=== PATIENT | female | born 1980 | race Two or more races ===

== ENCOUNTER → 2024-10-04 | Outpatient (CLI) | payer MEDICAID, SELFPAY ==
--- NOTE | 2024-10-04 15:30 | XR_ITS ---
Examination: Breast ultrasound, unilateral, left complete Date and time of exam: October 04, 2024 1535 hours INDICATIONS: Left breast sonogram April 08, 2024 13 mm retroareolar nodule Technique: Real-time galvez scale ultrasonographic imaging performed left breast including all 4 quadrants as well as nipple retroareolar and axillary region. Findings: 12:00 cyst 4 x 3 mm 10:00 cyst 4 x 4 millimeter Retroareolar glandular tissue 12 x 4 x 13 mm probably benign IMPRESSION: BI-RADS Category 3: Probably benign findings Recommend 1 additional 6 month left breast sonogram follow-up to document stability of probably benign glandular tissue retroareolar region left breast
== END | disposition home or self-care (01) ==
PROVIDERS: PCP Registered Nurse Community Health; Referring Provider Registered Nurse Community Health; Visit Provider Registered Nurse Community Health
DX: R92.8 Other abnormal and inconclusive findings on diagnostic imaging of breast (principal); N60.02 Solitary cyst of left breast
CPT/HCPCS: 76641

== ENCOUNTER 2024-12-07 15:25 | Emergency (ER) | payer MEDICAID, SELFPAY ==
[2024-12-07 15:26] VITALS: BMI 30.2
[2024-12-07 15:43] VITALS: BP 104/67; PULSE 81; RESP 18; TEMP 36.9; O2SAT 97
--- NOTE | 2024-12-07 15:49 | XR_ITS ---
Examination: Hand, left 3 views Technique: Hand AP, oblique, lateral 3 views Date and time of exam: December 07, 2024 1554 hours INDICATIONS: Injured the hand today, hand pain FINDINGS: No acute fracture No dislocation No foreign body IMPRESSION: No acute fracture
--- NOTE | 2024-12-07 17:01 | PD.EDUPEX ---
Upper Extremity Injury RME/HPI General Chief Complaint: Extremity Injury, Upper Stated Complaint: L HAND PAIN/CONTUSION Time Seen by Provider: 12/07/24 15:29 Arrival date/time: 12/07/24 15:25 44-year-old female presents emergency department today stating that she was working outside and a branch hit her left hand patient reports pain and swelling to the dorsal aspect of the left hand Limitations: no limitations Related Data Home Medications ?Medication ?Instructions ?Recorded ?Confirmed fluoxetine 10 mg capsule 10 mg PO QDAY 01/28/18 01/29/18 Previous Rx's ?Medication ?Instructions ?Recorded diphenhydramine HCl 25 mg tablet 25 mg PO TID PRN allergic reaction 01/09/22 (Benadryl Allergy) #30 tabs ibuprofen 800 mg tablet 800 mg PO TID PRN pain #30 tabs 12/07/24 Allergies Allergy/AdvReac Type Severity Reaction Status Date / Time sulfamethoxazole Allergy Intermediate Hives Verified 01/08/22 22:59 trimethoprim Allergy Intermediate Hives Verified 01/08/22 22:59 Review of Systems Review of Systems Systems Reviewed: All systems reviewed, normal except as documented Constitutional Constitutional: Reports system reviewed and no additional complaints, except as documented, Denies fever(s) and Denies headache(s) Eyes Eyes: Reports system reviewed and no additional complaints, except as documented and Denies blurry vision ENT Ears, Nose, Mouth, and Throat: Reports system reviewed and no additional complaints, except as documented, Denies headache(s), Denies nasal congestion and Denies nasal discharge Cardiovascular Cardiovascular: Reports system reviewed and no additional complaints, except as documented, Denies chest pain and Denies dyspnea Respiratory Respiratory: Reports system reviewed and no additional complaints, except as documented, Denies chest congestion, Denies cough and Denies dyspnea Gastrointestinal Gastrointestinal: Reports system reviewed and no additional complaints, except as documented and Denies abdominal pain Musculoskeletal Musculoskeletal: Reports system reviewed and no additional complaints, except as documented, Reports arthralgias, Denies deformity, Reports joint swelling, Denies numbness, Reports stiffness and Denies tingling Integumentary/Breasts Skin/Breast: Reports system reviewed and no additional complaints, except as documented and Denies rash Neurologic Neurologic: Reports system reviewed and no additional complaints, except as documented, Reports as per HPI, Denies headache(s), Denies numbness and Denies tingling Past Medical History Past Medical History NEUROLOGIC: Negative Neurological Disorders or Seizures CARDIAC: Negative Cardiac Disorders or Congestive Heart Failure RESPIRATORY: Negative Chronic Obstructive Pulmonary Disease (COPD) GASTROINTESTINAL: Negative Gastrointestinal Disorders GENITOURINARY: Negative Genitourinary Disorders or Renal Disease REPRODUCTIVE: Positive Previous Pregnancies (X4) ENDOCRINE: Negative Endocrine Disorders, Diabetes Mellitus Type 1 or Diabetes Mellitus Type 2 HEMATOLOGIC: Negative Blood Disorders PSYCHO/SOCIAL: Positive Depression (TAKES PO MED) and Anxiety (TAKES PO MED) OTHER HISTORY: Positive Chicken Pox; Negative Autoimmune Disease or Anesthesia Reactions Surgical History SURGICAL: Positive Section (X2) Social History SMOKING STATUS: Never smoker ED Exam General Limitations: Present no limitations General appearance: Present alert and in no apparent distress Head Head exam: Present atraumatic Eye Eye exam: Present normal appearance, PERRL and EOMI ENT ENT exam: Present normal exam, normal oropharynx and mucous membranes moist Neck Neck exam: Present normal inspection, full ROM and trachea midline Chest Chest inspection: Present normal inspection and symmetric chest wall rise Respiratory Respiratory exam: Present normal lung sounds bilaterally Cardiovascular Cardiovascular exam: Present regular rate, normal rhythm and normal heart sounds Abdominal Exam Abdominal exam: Present soft and normal bowel sounds Extremities Exam Extremities exam: Present full ROM, tenderness, normal capillary refill and joint swelling (Left hand pain) Back Exam Back exam: Present normal inspection and full ROM Neurological Exam Neurological exam: Present alert, oriented X3 and CN II-XII intact Psychiatric Psychiatric exam: Present normal affect and normal mood Skin Skin exam: Present warm, dry, intact and normal color Course Quality Measures none Orders Category Date Time Status jean-pierre wrap [Splint / Immobilizer] STAT Care 12/07/24 17:01 Completed XR hand comp LT min 3V Stat Exams 12/07/24 15:49 Completed Ibuprofen Tab [Motrin Tab] Med 12/07/24 17:01 Discontinued 600 mg PO X1 ONE Vital Signs Vital signs: Vital Signs Temperature 98.4 F 12/07/24 15:43 Pulse Rate 81 12/07/24 15:43 Respiratory Rate 18 12/07/24 15:43 Blood Pressure 104/67 12/07/24 15:43 Pulse Oximetry (%) 97 12/07/24 15:43 Oxygen Delivery Method Room Air 12/07/24 15:43 O2 saturation 97% room air with normal Extremity Injury MDM Narrative MDM Narrative:: 44-year-old female presents emergency department today stating that she was working outside and a branch hit her left hand patient reports pain and swelling to the dorsal aspect of the left hand On exam patient has mild swelling and bruising to the dorsal aspect of the left hand no deformity patient can move all fingers without difficulty X-ray obtained no acute fracture dislocation noted Patient placed in Jean-Pierre wrap Explained to the patient that if symptoms persist or worsen she may need advanced imaging for further evaluation Patient data External records reviewed:: [facility] previous records Clinical information provided by:: patient Social determinants that could affect healthcare access:: none Patient has the following chronic illnesses:: None How is presenting disease/condition affected by chronic disease/condition?: no chronic disease Evaluation data The following diagnostics were reviewed and interpreted by me:: radiology exam(s) Lab and/or radiology exams considered but not ordered:: Radiology obtain Interpretation Summary: Reviewed by me Medications / Prescriptions Medications or Prescriptions considered but not ordered:: Given Medication administrations:: Medication Administration History Discontinued Medications Ibuprofen (Ibuprofen Tab 600 Mg Tablet) 600 mg PO X1 ONE Stop: 12/07/24 17:02 Last Admin: 12/07/24 17:07 Dose: 600 mg Documented By: OA Given Consultations Consultation(s) initiated? (list below): No Diagnosis Upper Extremity Injury Differential Diagnosis: sprain and strain of wrist and fracture of hand Most likely diagnosis given after review of the tests above:: Contusion of hand Admission Indicated Admission indicated?: not indicated Admission Request Was there a request for admission?: No Disposition Plan Disposition Plan: Discharge Discharge Attestation Discharge Attestation: The patient and all family members were given an opportunity to ask questions and understood the discharge instructions. Discharge instructions specifically effects, indications for sooner follow up or return to the emergency department, and the expected course of current diagnosis. Patient condition: Stable Discharge Plan Plan Patient Disposition: HOME (Self Care) Disposition Comment: Stable Prescriptions/Referrals Prescriptions/Med Rec: New ibuprofen 800 mg tablet 800 mg PO TID PRN (Reason: pain) Qty: 30 0RF No Action fluoxetine 10 mg Capsule 10 mg PO QDAY diphenhydramine HCl [Benadryl Allergy] 25 mg tablet 25 mg PO TID PRN (Reason: allergic reaction) Qty: 30 0RF Referrals: Mayra Estrada FNP [Primary Care Provider] - In 1 week Problem List Clinical Impression: Contusion of left hand Patient/Caregiver Discharge Instructions Education Materials: Bruises (Contusions) Additional Instructions: Please follow up with your primary care doctor in the next 24-48hrs for any worsening symptoms return here immediately Print Language: Romanian Stand Alone Forms: Caroline Award Info., Patient Portal Info Letter PA/STATISTICS TUTOR Supervising Physician PA/STATISTICS TUTOR Supervising Physician: Dr Driver
[2024-12-07] MEDS: IBUPROFEN TAB 600 MG TABLET PO (17:07)
== END 2024-12-07 17:15 | disposition home or self-care (01) ==
PROVIDERS: Emergency Provider Emergency Medicine; PCP Registered Nurse Community Health
DX: S60.222A Contusion of left hand, initial encounter (principal); W22.8XXA Striking against or struck by other objects, initial encounter; Y93.89 Activity, other specified
CPT/HCPCS: 73130; 99283; A9270

== ENCOUNTER 2024-12-23 18:35 | Emergency (ER) | payer MEDICAID, SELFPAY ==
[2024-12-23 18:37] VITALS: BMI 26.2
[2024-12-23 19:49] VITALS: BP 113/77; PULSE 79; RESP 18; TEMP 36.9; O2SAT 95
--- NOTE | 2024-12-23 20:04 | XR_ITS ---
Examination: Duplex scan of the lower extremity, unilateral right Date and time of exam: January 03, 2020 5:10 PM Indications: Right leg pain beginning 3 weeks ago Technique: Duplex scan of the extremity veins using B-mode/grayscale imaging and Doppler spectral analysis and color flow Attention is directed to internal echogenicity, compression and augmentation involving these veins, color flow assessment, spectral analysis Findings: Major deep venous structures in the extremity demonstrate normal course and caliber. There is no evidence of deep vein thrombosis. Normal color flow and spectral analysis Impression: Negative for DVT..
[2024-12-23] MEDS: GABAPENTIN 300 MG CAPSULE PO (20:13)
[2024-12-23] MEDS: KETOROLAC INJ 60 MG/2 ML VIAL IM (20:14)
--- NOTE | 2024-12-23 21:36 | EDNOTE_ITS ---
ED Back Injury Pain RME/HPI General Chief Complaint: Back Pain/Injury Stated Complaint: LOWER BACK PAIN RADIATING DOWN RIGHT LEG Time Seen by Provider: 12/23/24 20:03 Arrival date/time: 12/23/24 18:35 44F with no significant PMH presents to ED with R lower back pain that radiates down RLE for 3 weeks. Patient denies fall/trauma, dysuria/hematuria, vaginal bleeding, SOB and CP. Limitations: no limitations Related Data Home Medications ?Medication ?Instructions ?Recorded ?Confirmed fluoxetine 10 mg capsule 10 mg PO QDAY 01/28/1801/29 Previous Rx's ?Medication ?Instructions ?Recorded diphenhydramine HCl 25 mg tablet 25 mg PO TID PRN [place] rgic reaction 01/09/22 (Benadryl Allergy) #30 tabs ibuprofen 800 mg tablet 800 mg PO TID PRN pain #30 t abs 12/07/24 Allergies Allergy/AdvReac Type Severity Reaction Status Date / Time sulfamethoxazole Allergy Intermediate Hives Verified 12/23/24 18:36 trimethoprim Allergy Intermediate Hives Verified 12/23/24 18:36 Review of Systems Review of Systems Systems Reviewed: All systems reviewed, normal except as documented Constitutional Constitutional: Reports system reviewed and no additional complaints, except as documented, Denies fever(s) and Denies headache(s) ENT Ears, Nose, Mouth, and Throat: Denies disequilibrium and Denies headache(s) Cardiovascular Cardiovascular: Reports system reviewed and no additional complaints, except as documented, Denies chest pain and Denies dyspnea Respiratory Respiratory: Reports system reviewed and no additional complaints, except as documented, Denies cough and Denies dyspnea Gastrointestinal Gastrointestinal: Reports system reviewed and no additional complaints, except as documented, Denies abdominal pain, Denies nausea and Denies vomiting Musculoskeletal Musculoskeletal: Reports as per HPI, Reports back pain and Reports radiating pain into limb Neurologic Neurologic: Reports system reviewed and no additional complaints, except as documented, Denies confusion, Denies disequilibrium and Denies headache(s) Psychiatric Psychiatric: Denies confusion Past Medical History Past Medical History NEUROLOGIC: Negative Neurological Disorders or Seizures CARDIAC: Negative Cardiac Disorders or Congestive Heart Failure RESPIRATORY: Negative Chronic Obstructive Pulmonary Disease (COPD) GASTROINTESTINAL: Negative Gastrointestinal Disorders GENITOURINARY: Negative Genitourinary Disorders or Renal Disease REPRODUCTIVE: Positive Previous Pregnancies (X4) ENDOCRINE: Negative Endocrine Disorders, Diabetes Mellitus Type 1 or Diabetes Mellitus Type 2 HEMATOLOGIC: Negative Blood Disorders PSYCHO/SOCIAL: Positive Depression (TAKES PO MED) and Anxiety (TAKES PO MED) OTHER HISTORY: Positive Chicken Pox; Negative Autoimmune Disease or Anesthesia Reactions Surgical History SURGICAL: Positive Section (X2) Social History SMOKING STATUS: Never smoker ED Exam General Limitations: Present no limitations General appearance: Present alert and in no apparent distress Head Head exam: Present atraumatic Eye Eye exam: Present normal appearance, PERRL and EOMI ENT ENT exam: Present normal exam, normal oropharynx and mucous membranes moist Neck Neck exam: Present normal inspection, full ROM and trachea midline Chest Chest inspection: Present normal inspection and symmetric chest wall rise Respiratory Respiratory exam: Present normal lung sounds bilaterally Cardiovascular Cardiovascular exam: Present regular rate, normal rhythm and normal heart sounds Abdominal Exam Abdominal exam: Present soft and normal bowel sounds Extremities Exam Extremities exam: Present normal inspection and full ROM Back Exam Back exam: Present normal inspection and full ROM Neurological Exam Neurological exam: Present alert, oriented X3 and CN II-XII intact Psychiatric Psychiatric exam: Present normal affect and normal mood Skin Skin exam: Present warm, dry, intact and normal color Course Quality Measures none Orders Category Date Time Status US venous doppler LE RT Stat Exams 12/23/24 20:04 Completed Gabapentin [Neurontin] Med 12/23/24 20:04 Discontinued 300 mg PO X1 ONE Ketorolac Inj [Toradol Inj] Med 12/23/24 20:04 Discontinued 60 mg IM X1 ONE Vital Signs Vital signs: Vital Signs Temperature 98.5 F 12/23/24 19:49 Pulse Rate 79 12/23/24 19:49 Respiratory Rate 18 12/23/24 19:49 Blood Pressure 113/77 12/23/24 19:49 Pulse Oximetry (%) 95 12/23/24 19:49 Oxygen Delivery Method Room Air 12/23/24 19:49 O2 at 95% on RA and WNLs Back Pain / Injury MDM Narrative MDM Narrative:: 44F with no significant PMH presents to ED with R lower back pain that radiates down RLE for 3 weeks. Patient denies fall/trauma, dysuria/hematuria, vaginal bleeding, SOB and CP. Physical exam reveals no gross RLE swelling. No midline back tenderness. ROM intact. Patient is afebrile, calm, and alert. Gait normal. US no DVT. Likely sciatica. Patient data External records reviewed:: [facility] previous records Clinical information provided by:: patient Social determinants that could affect healthcare access:: none Patient has the following chronic illnesses:: none How is presenting disease/condition affected by chronic disease/condition?: no chronic disease Evaluation data The following diagnostics were reviewed and interpreted by me:: radiology exam(s) Lab and/or radiology exams considered but not ordered:: ordered Interpretation Summary: above Medications / Prescriptions Medications or Prescriptions considered but not ordered:: ordered Medication administrations:: Medication Administration History Discontinued Medications Gabapentin (Gabapentin 300 Mg Capsule) 300 mg PO X1 ONE Stop: 12/23/24 20:05 Last Admin: 12/23/24 20:13 Dose: 300 mg Documented By: YESENIA Ketorolac Tromethamine (Ketorolac Inj 60 Mg/2 Ml Vial) 60 mg IM X1 ONE Stop: 12/23/24 20:05 Last Admin: 12/23/24 20:14 Dose: 60 mg Documented By: YESENIA above Consultations Consultation(s) initiated? (list below): No Diagnosis Differential diagnosis back pain/injury: lumbar radiculopathy, sciatica, strain of lumbar region, renal colic, pyelonephritis, thoracic back pain, AAA, discitis and other (DVT) Most likely diagnosis given after review of the tests above:: sciatica Admission Indicated Admission indicated?: not indicated Admission Request Was there a request for admission?: No Disposition Plan Disposition Plan: Discharge Discharge Attestation Discharge Attestation: The patient and all family members were given an opportunity to ask questions and understood the discharge instructions. Discharge instructions specifically effects, indications for sooner follow up or return to the emergency department, and the expected course of current diagnosis. Patient condition: Stable Discharge Plan Plan Patient Disposition: HOME (Self Care) Disposition Comment: Stable Prescriptions/Referrals Prescriptions/Med Rec: No Action fluoxetine 10 mg Capsule 10 mg PO QDAY diphenhydramine HCl [Benadryl Allergy] 25 mg tablet 25 mg PO TID PRN (Reason: allergic reaction) Qty: 30 0RF ibuprofen 800 mg tablet 800 mg PO TID PRN (Reason: pain) Qty: 30 0RF Referrals: Mayra Estrada FNP [Primary Care Provider] - In 1 week Problem List Clinical Impression: Sciatica Patient/Caregiver Discharge Instructions Education Materials: ED Sciatica Additional Instructions: Please follow-up with PCP within 24-48 hours and return immediately if symptoms worsen. If problem persists, recommend outpatient PT and/or MRI follow-up. In the meantime, rest, use ice/heat, and/or compression. Print Language: Norwegian Stand Alone Forms: Patient Portal Info Letter PA/COUNTER DISH CARRIER Supervising Physician PA/COUNTER DISH CARRIER Supervising Physician: Dr. Welch
[2024-12-23 23:16] VITALS: BP 112/74; PULSE 71; RESP 17; TEMP 36.6; O2SAT 97
== END 2024-12-23 23:26 | disposition home or self-care (01) ==
PROVIDERS: Emergency Provider Emergency Medicine; PCP Registered Nurse Community Health
DX: M54.41 Lumbago with sciatica, right side (principal)
CPT/HCPCS: 93971; 96372; 99284; J1885; A9270

== ENCOUNTER → 2025-03-31 | Outpatient (CLI) | payer MEDICAID, SELFPAY ==
--- NOTE | 2025-03-31 09:00 | XR_ITS ---
Examination: Screening digital mammography, bilateral Computer aided detection 3-D breast Tomosynthesis, bilateral Date and time of exam: March 31, 2025 0847 hours Compared to mammograms dating to August 08, 2022 Indication: Screening Technique: Nonmagnified MLO, CC views of the breasts to been obtained, reconstructed from 3-D Tomosynthesis images. R2 computer aided detection program utilized for evaluation of suspicious masses and/or abnormal calcifications. 3-D Tomosynthesis images obtained. Findings: The breasts are heterogeneously dense, which may obscure small masses Probably benign stable bilateral breast calcifications No suspicious masses Impression: BI-RADS Category 3: Probably benign findings Recommend 6 month bilateral mammography follow-up.
== END | disposition home or self-care (01) ==
LOC: CDIM 08:39
PROVIDERS: Referring Provider Nurse Practitioner Family; Visit Provider Nurse Practitioner Family
DX: Z12.31 Encounter for screening mammogram for malignant neoplasm of breast (principal); R92.333 Mammographic heterogeneous density, bilateral breasts
CPT/HCPCS: 77063; 77067

== ENCOUNTER → 2025-05-05 | Outpatient (CLI) | payer MEDICAID, SELFPAY ==
--- NOTE | 2025-05-05 14:30 | XR_ITS ---
Examination: Breast ultrasound, unilateral, left complete Date and time of exam: May 05, 2025 1443 hours INDICATIONS: Palpable lumps in the outer left breast several years Technique: Real-time galvez scale ultrasonographic imaging performed left breast including all 4 quadrants as well as nipple retroareolar and axillary region. Findings: 2:00 cyst 5 x 7 mm 9:00 cyst 4 x 4 millimeter Retroareolar oval mass circumscribed 5 x 6 mm IMPRESSION: BI-RADS Category 3: Probably benign findings One additional 6 month left breast sonogram follow-up needed to document stability of retroareolar nodule described above
== END | disposition home or self-care (01) ==
LOC: CDIM 14:21
PROVIDERS: PCP Registered Nurse Community Health; Referring Provider Registered Nurse Community Health; Visit Provider Registered Nurse Community Health
DX: N63.42 Unspecified lump in left breast, subareolar (principal)
CPT/HCPCS: 76641

== ENCOUNTER 2025-09-27 02:11 | Emergency (ER) | payer MEDICAID, SELFPAY ==
[2025-09-27] VITALS (7 sets, daily range): BP systolic 98–135; BP diastolic 53–98; PULSE 75–93; RESP 16–40; TEMP 36.6–36.9; O2SAT 96–100; BMI 27.7
--- NOTE | 2025-09-27 02:13 | EDNOTE_ITS ---
ED Anxiety RME/HPI General Chief Complaint: Anxiety Stated Complaint: ANXIETY Time Seen by Provider: 09/27/25 02:26 Arrival date/time: 09/27/25 02:11 RME / HPI RME / HPI narrative: See [facility] for Dr. Welch's HPI documentation. Related Data Home Medications ?Medication ?Instructions ?Recorded ?Confirmed fluoxetine 10 mg capsule 10 mg PO QDAY 01/28/1801/29 Previous Rx's ?Medication ?Instructions ?Recorded diphenhydramine HCl 25 mg tablet 25 mg PO TID PRN [place] rgic reaction 01/09/22 (Benadryl Allergy) #30 tabs ibuprofen 800 mg tablet 800 mg PO TID PRN pain #30 t abs 12/07/24 Allergies Allergy/AdvReac Type Severity Reaction Status Date / Time sulfamethoxazole Allergy Intermediate Hives Verified 12/23/24 18:36 trimethoprim Allergy Intermediate Hives Verified 12/23/24 18:36 Review of Systems Review of Systems Systems Reviewed: All systems reviewed, normal except as documented Past Medical History Past Medical History NEUROLOGIC: Negative Neurological Disorders or Seizures CARDIAC: Negative Cardiac Disorders or Congestive Heart Failure RESPIRATORY: Negative Chronic Obstructive Pulmonary Disease (COPD) GASTROINTESTINAL: Negative Gastrointestinal Disorders GENITOURINARY: Negative Genitourinary Disorders or Renal Disease REPRODUCTIVE: Positive Previous Pregnancies (X4) ENDOCRINE: Negative Endocrine Disorders, Diabetes Mellitus Type 1 or Diabetes Mellitus Type 2 HEMATOLOGIC: Negative Blood Disorders PSYCHO/SOCIAL: Positive Depression (TAKES PO MED) and Anxiety (TAKES PO MED) OTHER HISTORY: Positive Chicken Pox; Negative Autoimmune Disease or Anesthesia Reactions Surgical History SURGICAL: Positive Section (X2) Social History SMOKING STATUS: Never smoker ED Exam Narrative Physical exam: See [facility] for Dr. Welch's physical exam documentation. Course Quality Measures none Anxiety [facility] Narrative [facility] Narrative: This section includes all my notes and documentations, including HPI, PE, and ED course. Tavares Welch MD HPI: 45-year-old female BIBA from home with possible panic attack. Unable to obtain history from the patient. She seems to be hyperventilating and not answering questions. According to EMS, she caught her 19-year-old son smoking marijuana. Then she laid herself on the floor with rapid breathing and uncontrollable mov ements and not answering questions. ROS: Unable to obtain from the patient due to current clinical condition. Physical Exam: General: Alert. Appears to be hyperventilating. Hypoxia noted. Eyes: Conjunctivae and lids clear. PERRL. EOMI. ENT: No nasal congestion. Neck: Supple. Heart: RRR. Lungs: No respiratory distress. Good air movement. No severe rhonchi, wheezing, rales. Abdomen: Soft and nontender. Normal bowel sounds. No distension. No rebound or guarding. Skin: Warm and dry. Neuro: Alert. Cranial nerves II to XII grossly normal. No obvious peripheral motor deficits. I reviewed EMS notes. I reviewed all diagnostic test results. My interpretation of the EKG is sinus rhythm with nonspecific ST-T changes. My interpretation of the chest x-ray is NAD, official radiology report is pending. Blood tests remarkable for WBC 11.7, CO2 14.8. ABG showed pH 7.72, pCO2 14, pO2 59, pHCO3 18. UA unremarkable. UDS negative. Head CT and chest CTA pending. At this point, diagnoses include: Hypoxia Treatment prior to diagnostic tests included: Zofran ODT 4 mg and Xanax 0.75 mg before diagnostic tests (no improvement noted) Treatment after diagnostic tests and with persistent hypoxia: Ativan 2 mg IV Solumedrol 125 mg IV DuoNeb At 6 AM on 09/27/2025, the care of the patient was transferred to Dr. Eldridge. Tavares Welch MD Patient data External records reviewed:: [facility] previous records (Per chart review, patient was seen here on 12/23/24 for sciatica.) and EMS form Clinical information provided by:: EMS Social determinants that could affect healthcare access:: none Patient has the following chronic illnesses:: none How is presenting disease/condition affected by chronic disease/condition?: no chronic disease Evaluation data The following diagnostics were reviewed and interpreted by me:: lab results, radiology exam(s) and EKG tracing(s) (My interpretation of the EKG is: Sinus rhythm (79 bpm) with nonspecific ST-T changes. Tavares Welch MD) Lab and/or radiology exams considered but not ordered:: none Interpretation Summary: I reviewed all diagnostic test results. My interpretation of the EKG is sinus rhythm with nonspecific ST-T changes. My interpretation of the chest x-ray is NAD, official radiology report is pending. Blood tests remarkable for WBC 11.7, CO2 14.8. ABG showed pH 7.72, pCO2 14, pO2 59, pHCO3 18. UA unremarkable. UDS negative. Head CT and chest CTA pending. Medications / Prescriptions Medications or Prescriptions considered but not ordered:: none Medication administrations:: Treatment prior to diagnostic tests included: Zofran ODT 4 mg and Xanax 0.75 mg before diagnostic tests (no improvement noted) Treatment after diagnostic tests and with persistent hypoxia: Ativan 2 mg IV Solumedrol 125 mg IV DuoNeb Consultations Consultation(s) initiated? (list below): No Diagnosis Differential diagnosis anxiety: hyperventilation, panic disorder and acute anxiety Most likely diagnosis given after review of the tests above:: Persistent hypoxia Admission Indicated Admission indicated?: not indicated Explain why admission is indicated or not indicated:: Complete diagnostic tests are pending. Admission Request Was there a request for admission?: No Disposition Plan Disposition Plan: other (specify) (At 6 AM on 09/27/2025, the care of the patient was transferred to Dr. Eldridge.) Discharge Plan Prescriptions/Referrals Prescriptions/Med Rec: No Action fluoxetine 10 mg Capsule 10 mg PO QDAY diphenhydramine HCl [Benadryl Allergy] 25 mg tablet 25 mg PO TID PRN (Reason: allergic reaction) Qty: 30 0RF ibuprofen 800 mg tablet 800 mg PO TID PRN (Reason: pain) Qty: 30 0RF Referrals: Mayra Estrada FNP [Primary Care Provider] - In 1 week Problem List Clinical Impression: Hypoxia Patient/Caregiver Discharge Instructions Print Language: Indonesian
[2025-09-27] MEDS: ONDANSETRON ODT 4 MG TABRAP PO (02:19)
[2025-09-27 02:40] LABS: Basophils # (Auto) 0.1 Thou/mm3 (0.0-0.2); Basophils % (Auto) 1 % (0-2.5); Eosinophils # (Auto) 0.1 Thou/mm3 (0.0-0.5); Eosinophils % (Auto) 1 % (0-10); Hematocrit 42.7 % (36.0-46.0); Hemoglobin 15.3 g/dL (12.0-16.0); Immature Granulocytes Auto 0.08 Thou/mm3 (0.00-0.00); Lymphocytes # (Auto) 2.9 Thou/mm3 (1.0-4.8); Lymphocytes % (Auto) 24 % (10-50); Mean Corpuscular HGB Conc 35.8 g/dl (31.0-37.0); Mean Corpuscular Hemoglobin 31.3 pg (25.0-35.0); Mean Corpuscular Volume 87 fL (80-100); Monocytes # (Auto) 0.5 Thou/mm3 (0.0-0.8); Monocytes % (Auto) 5 % (0-12); Neutrophils # (Auto) 8.1 Thou/mm3 (1.8-7.7); Neutrophils % (Auto) 69 % (37-80); Nucleated Red Blood Cell # 0.00 Thou/mm3 (0.00-0.00); Nucleated Red Blood Cell % 0 /100 WBC (0); Platelet Count 221 Thou/mm3 (140-440); RDW Standard Deviation 39.9 fL (36.4-46.3); Red Blood Count 4.89 Miln/mm3 (4.00-5.20); White Blood Count 11.7 Thou/mm3 (3.6-11.0)
--- NOTE | 2025-09-27 02:55 | XR_ITS ---
AP portable upright chest film on 09/27/2025 at 3:53 a.m. Comparison study 11/26/2013 CLINICAL HISTORY: Shortness of breath today FINDINGS: The heart mediastinum and hilar regions appear radiographically normal. Both lungs are clear there is no pleural fluid. Surgical clips are seen in the gallbladder fossa. In the upper third of the thoracic spine there is exceedingly minimal scoliosis, unchanged from the prior film. In all other respects the bony thorax appears normal. IMPRESSION: 1. Normal AP upright chest film 2. Please see above regarding some additional finding
[2025-09-27 03:04] LABS: HCG,Qualitative Serum Negative
[2025-09-27 03:20] LABS: Alcohol, Blood Medical < 3.0 mg/dL (0-10.0); Anion Gap 19 (7-16); BUN/Creatinine Ratio 9 Ratio (12-20); Blood Urea Nitrogen 6 mg/dL (9-23); Calcium 10.0 mg/dL (8.3-10.6); Chloride 106 mMol/L (98-107); Creatine Kinase 100 U/L (34-171); Creatinine (Component) 0.7 mg/dL (0.6-1.3); Estimated Creatinine Clearance 105.9 mL/min (>60); Glucose 110 mg/dL (74-106); Magnesium 1.7 mg/dL (1.6-2.6); Osmolality,Calculated 278 (275-295); Potassium 3.4 mMol/L (3.4-5.1); Sodium 140 mMol/L (136-145); Thyroid Stimulating Hormone 2.69 uIU/mL (0.55-4.78); Troponin I < 0.020 ng/mL (0.0-0.045); eGFR > 60 See Note
[2025-09-27 03:23] LABS: Carbon Dioxide 14.8 mMol/L (20.0-31.0)
[2025-09-27 03:29] LABS: B-Type Natriuretic Peptide < 20 pg/mL (0-100)
[2025-09-27 03:29] LABS: Collection Type, Urine Clean Catch; Squamous Epithelial Cell,Urine 0 /hpf (0-5)
[2025-09-27 03:31] LABS: D-Dimer < 250 ng/mL (<600)
[2025-09-27 03:54] LABS: Amphetamine/Methamp Scrn,U Negative (Negative); Barbiturate Screen,Urine Negative (Negative); Benzodiazepines Screen,Urine Negative (Negative); Benzoylecgonine Screen, Ur Negative (Negative); Fentanyl Screen,Urine Negative (Negative); Opiate Screen,Urine Negative (Negative); THC Screen,Urine Negative (Negative)
[2025-09-27 03:58] LABS: Bacteria,Urine Rare; Bilirubin,Urine Negative (Negative); Blood,Urine Negative (Negative); Clarity,Urine Clear (Clear/Hazy); Color,Urine Lt-Yellow (Lt Yel-Yel); Culture Indicated,Urine Not Indicated; Glucose, Urine Negative (Negative); Ketones,Urine Negative (Negative); Leukocyte Esterase,Urine Negative (Negative); Nitrite,Urine Negative (Negative); PH,Urine 7.5 (5.0-7.0); Protein,Urine Negative (Neg - Trace); RBC,Urine 3 /hpf (0-3); Specific Gravity,Urine 1.008 (1.001-1.035); Urobilinogen,Urine Negative mg/dL (0.0-1.0); WBC,Urine 4 /hpf (0-5)
[2025-09-27 04:01] LABS: Base Excess 2 (-3-3); HCO3 18 mEq/L (20-26); Inspired Oxygen, FIO2 28 %; PCO2 14 mmHg (32.0-48.0); pH, Arterial 7.72 (7.35-7.45)
[2025-09-27 04:03] LABS: Allen Test Performed/OK; O2 Saturation 95 % (91-98); Puncture Site Right Radial
[2025-09-27 04:05] LABS: PO2 59 mmHg (83-108)
--- NOTE | 2025-09-27 04:07 | PC.RT ---
abg had to be redraw at 0351 due to lab not accepted the one drawn at 0324.
--- NOTE | 2025-09-27 04:16 | XR_ITS ---
Examination: CTA chest with intravenous contrast 2-D reconstructions 3-D reconstructions, vascular Date and time of exam: September 27, 2025, 0546 hours INDICATIONS: Chest pain hypoxia shortness of breath today CTDI: vol (mGy) 10.9 DLP: (mGycm) 387 Technique: Multiple axial sections of the thorax have been obtained. 3 mm slice thickness, from below the hemidiaphragms to above the apices of the lungs. Mediastinal and lung density settings have been obtained. 2-D sagittal and coronal reconstructions. 3-D angiographic renderings, 3-D volume renderings, 3D post processing, vascular maximum intensity projections obtained. Contrast administered is 100 cc [id number]-[id number]. Low dose protocols were performed. One or more of the following dose reduction techniques were used; automated exposure control, adjustment of the mA and/or KV according to patient size, use of iterative reconstruction technique. Findings: No thoracic aortic aneurysm dilatation or dissection Pulmonary artery opacification is relatively poor No gross pulmonary artery emboli Mild enlargement left atrium No lobar pneumonia or pulmonary edema No visualized liver or splenic lesion Absent gallbladder No extrahepatic biliary tract dilatation, no common bile duct stones No pancreatic or adrenal mass No hydronephrosis Visualized abdominal aorta is not enlarged Mild thoracic spondylosis IMPRESSION: No thoracic aortic aneurysmal dilatation or dissection Pulmonary artery opacification is relatively poor, contrast bolus timing error, no gross pulmonary artery emboli No pneumonia or pulmonary edema or pleural disease
--- NOTE | 2025-09-27 04:16 | XR_ITS ---
Examination: CT cervical spine without contrast 2-D sagittal reconstructions 2-D coronal reconstructions 3-D reconstructions. Exam date and time: September 27, 2025, 0542 hours INDICATIONS: Ground-level fall today with injury to the neck, neck pain CTDI:vol (mGy) 13.3 DLP: (mGycm) 246 Technique: Multiple 2 mm axial sections of the cervical spine have been obtained. The coronal and sagittal reconstructions have been obtained. 3-D reconstructions have been obtained. Low dose protocols were performed. One or more of the following dose reduction techniques were used; automated exposure control, adjustment of the mA and/or KV according to patient size, use of iterative reconstruction technique. Findings: Axial sections demonstrate intact base of the skull. C1 exhibit satisfactory relationship to the odontoid. No acute cervical vertebral body fracture seen. Alignment posterior spinous processes satisfactory. Impression: No acute cervical fracture.
--- NOTE | 2025-09-27 04:16 | XR_ITS ---
Examination: CT brain head without contrast. 2-D sagittal coronal reconstructions Date and time of exam: September 27, 2025, 0542 hours INDICATIONS: Ground-level fall today with headache CTDI: vol (mGy): 45.1 DLP: (mGycm): 823 Technique: Multiple CT axial sections of the brain have been obtained, 5 mm slice thickness. Contrast has not been administered. 2-D sagittal, coronal reconstructions have been obtained Low dose protocols were performed. One or more of the following dose reduction techniques were used; automated exposure control, adjustment of the mA and/or KV according to patient size, use of iterative reconstruction technique. Findings: No significant ventricular enlargement. Intra-axial or extra-axial hemorrhage density is not seen. No mass effect or midline shift Basal cisterns are not remarkable. Fourth ventricle is midline. Cranial vault intact. Impression: Negative for acute hemorrhage, mass effect or midline shift
[2025-09-27] MEDS: LORazepam 2 MG/ML VIAL IVP (04:22)
[2025-09-27] MEDS: MethylPREDNISolone SOD SUCC 62.5 MG/ML 2ML VIAL 125 MG IVP (04:22)
[2025-09-27] MEDS: ALBUTEROL/IPRATROPIUM (Duoneb) RT SOL 3 ML NEBU INH (04:45)
--- NOTE | 2025-09-27 07:52 | EDNOTE_ITS ---
Emergency Room Addendum <Roseanne Baez - Last Filed: 09/27/25 07:56> Addendum Narrative: 0600: Care assumed from Dr. Welch, the previous shift emergency physician. Past medical, surgical, social and family history reviewed. Vitals and home medications reviewed. I will assume the care of the patient at this time, pending CTs and final disposition. Please refer to the emergency department record for history and examination from initial visit.?The following addendum documentation note is intended to reflect any pending information, findings, or radiology results not included in the patient?s initial chart. RADIOLOGY CT head report shows Negative for acute hemorrhage, mass effect or midline shift CT cervical spine wo con shows No acute cervical fracture. CT angio chest report shows No thoracic aortic aneurysmal dilatation or dissection. Pulmonary artery opacification is relatively poor, contrast bolus timing error, no gross pulmonary artery emboli. No pneumonia or pulmonary edema or pleural disease <Bennett Eldridge DO - Last Filed: 09/27/25 08:16> Addendum Narrative: 0600: Care assumed from Dr. Welch, the previous shift emergency physician. Past medical, surgical, social and family history reviewed. Vitals and home medications reviewed. I will assume the care of the patient at this time, pending CTs and final disposition. Please refer to the emergency department record for history and examination from initial visit.?The following addendum documentation note is intended to reflect any pending information, findings, or radiology results not included in the patient?s initial chart. I reviewed all labs. There was a metabolic acidosis. Patient was complaining of anxiety after being presented with an anxious situation. She was hyperventilating. Her ABG actually showed alkalosis with a very low pCO2. pO2 is 59 with 95% saturation on the ABG. Case was signed out to me awaiting CT angiogram of the chest which showed no evidence of acute disease process including no pulmonary embolism. At this time the patient is resting comfortably and is saturating 100% on room air. Patient will be discharged in stable condition. RADIOLOGY CT head report shows Negative for acute hemorrhage, mass effect or midline shift CT cervical spine wo con shows No acute cervical fracture. CT angio chest report shows No thoracic aortic aneurysmal dilatation or dissection. Pulmonary artery opacification is relatively poor, contrast bolus timing error, no gross pulmonary artery emboli. No pneumonia or pulmonary edema or pleural disease
== END 2025-09-27 08:38 | disposition home or self-care (01) ==
PROVIDERS: Emergency Provider Emergency Medicine; PCP Registered Nurse Community Health
DX: R09.02 Hypoxemia (principal); E87.3 Alkalosis; E87.20 Acidosis, unspecified; S19.9XXA Unspecified injury of neck, initial encounter; R51.9 Headache, unspecified; R06.02 Shortness of breath; R07.9 Chest pain, unspecified; W18.30XA Fall on same level, unspecified, initial encounter
CPT/HCPCS: 36415; 36600; 70450; 71045; 71275; 72125; 80048; 80307; 80320; 81001; 82550; 82803; 83735; 83880; 84443; 84484; 84703; 85025; 85379; 87502; 87635; 93005; 94640; 99284; A4649; A9270; J2060; J2919; Q0162; Q9967; G0480